=== PATIENT | male | born 1995 | race Caucasian/White ===

== ENCOUNTER 2018-08-07 06:48 | Emergency (ER) | payer OTHER | END 2018-08-07 07:55 | disposition home or self-care (01) | LOC: FTE 06:48 | DX: K65.1 Peritoneal abscess (principal); J45.909 Unspecified asthma, uncomplicated | CPT/HCPCS: 99283; Z7502 ==

== ENCOUNTER 2018-12-25 21:56 | Emergency (ER) | payer OTHER | END 2018-12-26 01:20 | disposition home or self-care (01) | LOC: FTE 21:56 | DX: S80.862A Insect bite (nonvenomous), left lower leg, initial encounter (principal); S80.861A Insect bite (nonvenomous), right lower leg, initial encounter; J45.909 Unspecified asthma, uncomplicated; W57.XXXA Bitten or stung by nonvenomous insect and other nonvenomous arthropods, initial encounter; Y92.9 Unspecified place or not applicable | CPT/HCPCS: 99283; Z7502 ==